=== PATIENT | male | born 1980 | race Two or more races ===

== ENCOUNTER 2025-02-22 08:34 | Emergency (ER) | payer MEDICAID ==
[~2025-02-22] VITALS: Ht 170.2 cm; Wt 100.0 kg
[2025-02-22 08:39] VITALS: TEMP 97.3
[2025-02-22] MEDS: KETOROLAC TROMETHAMINE 30 MG/ML VIAL IVP ONE (09:07)
[2025-02-22] MEDS: SODIUM CHLORIDE 0.9% 1,000 ML IV ONE (09:07)
[2025-02-22 09:13] LABS: PLATELET COUNT (AUTO) 242 K/uL (150-450); RED BLOOD CELL COUNT(AUTO) 5.30 MIL/uL (4.50-5.90); RED CELL DISTRIBUTION WIDTH 14.4 % (11.5-14.5); WHITE BLOOD COUNT (AUTO) 9.9 K/uL (4.5-11.0)
[2025-02-22 09:21] LABS: CALCIUM, TOTAL 8.8 mg/dL (8.8-10.5); CREATININE 0.80 mg/dL (0.60-1.30); GLOMERULAR FILTR. RATE CALC > 60 mL/min (>60); GLUCOSE,RANDOM 287 mg/dL (70-110); SODIUM SERUM 131 mmol/L (136-145); UREA NITROGEN, BLOOD 23 mg/dL (7-18)
[2025-02-22 09:39] LABS: APPEARANCE,URINE CLEAR (CLEAR); GLUCOSE, URINE (UA) >=1000 mg/dL (NEGATIVE); LEUKOCYTE ESTERASE ,URINE NEGATIVE (NEGATIVE); NITRATE,URINE POSITIVE (NEGATIVE); OCCULT BLOOD,URINE NEGATIVE (NEGATIVE); SPECIFIC GRAVITIY, URINE 1.018 (1.003-1.030)
[2025-02-22 09:56] LABS: SQUAMOUS EPITHELIAL CELL,UR Few /LPF (None Seen)
[2025-02-22 12:56] VITALS: BP 138/81; PULSE 78; RESP 15; O2SAT 98
[2025-02-22] MEDS ORDERED: IBUP-1492 PO (13:21)
== END 2025-02-22 13:42 | disposition home or self-care (01) ==
LOC: EMS 08:34
DX: R10.9 Unspecified abdominal pain (principal); I10 Essential (primary) hypertension; E11.9 Type 2 diabetes mellitus without complications; E78.00 Pure hypercholesterolemia, unspecified
CPT/HCPCS: 99285; 74176; 96374; 80048; 81001; 85025; 36415; 82962; J1885